=== PATIENT | female | born 1970 | race Caucasian/White ===

== ENCOUNTER 2016-05-15 10:56 | Emergency (ER) | payer OTHER, MEDICAID ==
[~2016-05-15] VITALS: Ht 149.9 cm; Wt 72.6 kg
[2016-05-15 11:19] VITALS: BP 118/82
== END 2016-05-15 13:01 | disposition home or self-care (01) ==
LOC: ED 10:56
DX: S50.01XA Contusion of right elbow, initial encounter (principal); M79.601 Pain in right arm; W18.30XA Fall on same level, unspecified, initial encounter; Y93.89 Activity, other specified; Y99.8 Other external cause status; Y92.89 Other specified places as the place of occurrence of the external cause

== ENCOUNTER 2016-06-17 12:21 | Emergency (ER) | payer OTHER, MEDICAID ==
[~2016-06-17] VITALS: Ht 162.6 cm; Wt 54.4 kg
[2016-06-17 15:56] VITALS: BP 117/83
== END 2016-06-17 15:58 | disposition home or self-care (01) ==
LOC: ED 12:21
DX: S00.93XA Contusion of unspecified part of head, initial encounter (principal); S80.02XA Contusion of left knee, initial encounter; S80.01XA Contusion of right knee, initial encounter; X58.XXXA Exposure to other specified factors, initial encounter; Y93.89 Activity, other specified; Y99.8 Other external cause status; Y92.89 Other specified places as the place of occurrence of the external cause; G89.29 Other chronic pain; Z88.0 Allergy status to penicillin; Z91.030 Bee allergy status
CPT/HCPCS: 87491; 87591

== ENCOUNTER 2016-06-24 12:11 | Inpatient (IN) | payer OTHER, MEDICAID ==
[~2016-06-24] VITALS: Ht 149.9 cm; Wt 79.1 kg
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
--- NOTE | 2016-06-24 14:35 | NUR ---
PT TAKEN TO RADIOLOGY VIA WHEELCHAIR AT THIS TIME IN A STABLE CONDITION AND W/O INCIDENT.
[2016-06-24 14:43] LABS: CALCIUM 8.5 mg/dL (8.5-10.1); CARBON DIOXIDE 19.6 mmol/L (21-32); CHLORIDE SERUM 107 mmol/L (98-107); CREATININE SERUM 0.5 mg/dL (0.6-1.0); GFR1 > 60 mL/min; GLUCOSE SERUM 79 mg/dL (74-106); SODIUM SERUM 143 mmol/L (136-145)
[2016-06-24 14:46] LABS: POTASSIUM SERUM 4.4 mmol/L (3.5-5.1)
[2016-06-24] MEDS ORDERED: BUSPAR5 MG PO (15:37)
[2016-06-24] MEDS ORDERED: PHENOBARBITAL97.2 MG PO (15:37)
[2016-06-24] MEDS ORDERED: ZOLOFT25 MG PO (15:37)
[2016-06-24] MEDS ORDERED: ROBAXIN500 MG PO (15:38)
[2016-06-24] MEDS ORDERED: [UNRECOGNIZED DRUG - CODE] PO (15:38)
[2016-06-24] MEDS ORDERED: ALLEGRA ALLERG180 M1 PO (15:38)
[2016-06-24] MEDS ORDERED: XANAX0.25 MG PO (15:38)
--- NOTE | 2016-06-24 16:11 | NUR ---
PLEASE ENTER FULL NAMES OF STUDENT/RN Documentation completed by (Student Nurse): JONATHAN LUCAS Documentation reviewed by (Registered Nurse): DAVIS SANDY
--- NOTE | 2016-06-24 16:18 | NUR ---
REPORT CALLED TO ROSA ON [facility] FOR ADMISSION OF THIS PT.
[2016-06-24 16:43] LABS: PHOSPHOROUS 3.1 mg/dL (2.5-4.9)
[2016-06-24 16:44] LABS: CHOLESTEROL/HDL RATIO 2.6
[2016-06-24 16:45] LABS: PLATELET COUNT 460 x10^3mcL (130-400); RED CELL DISTRIBUTION WIDTH 14.9 % (11.5-14.5)
[2016-06-24 16:55] LABS: FREE T4 0.71 ng/dL (0.76-1.46); FREE THYROXINE INDEX 1.7 ug/dL (1.4-4.5); T4(THYROXINE) 5.7 ug/dL (4.7-13.3)
[2016-06-24 17:09] LABS: BAND NEUTROPHIL 7 % (0-10); BASOPHIL 0 % (0-2); MONOCYTE 6 % (0-7); SEGMENTED NEUTROPHILS 47 % (37-75)
[2016-06-24 17:10] LABS: PLATELET MORPHOLOGY PLATELETS NORMAL
[2016-06-24 17:23] VITALS: BP 104/60
[2016-06-24 17:23] LABS: ALBUMIN 3.9 g/dL (3.4-5.0); BILIRUBIN DIRECT 0.11 mg/dL (0.0-0.2); BILIRUBIN TOTAL 0.2 mg/dL (0.20-1.00); TOTAL PROTEIN, SERUM 7.8 g/dL (6.4-8.2)
[2016-06-24 17:24] LABS: T3 TOTAL 1.1 ng/mL
--- NOTE | 2016-06-24 17:32 | NUR ---
RECEIVED PT FROM ED VIA MITESH. ORIENTED PT TO ROOM AND SURROUNDINGS. IV NOTED TO RIGHT HAND PATENT AND INTACT. TELE 30 PLACED ON PT READING NSR. INSTRUCTED PT ON THE USE OF CALL LIGHT FOR ASSISTANCE. ENDORSED PT TO PRIMARY NURSE KALIE
--- NOTE | 2016-06-24 18:00 | NUR ---
IN TO SEE PATIENT AT THIS TIME. PATIENT RESTING IN BED. AT THE BEDSIDE. DENIES PAIN AT THIS TIME. CALL LIGHT WITH IN REACH.
[2016-06-24 18:10] VITALS: BP 104/60
--- NOTE | 2016-06-24 19:20 | NUR ---
RECEIVED PT IN BED AWAKE AND TALKING ON THE PHONE. SHE IS ALERT,ORIENTED TO PERSON, PLACE AND TIME. NO SOB NOTED. BOWEL SOUNDS ACTIVE. SHE HAS NO C/O PAIN AT THIS TIME. W/ SPLINT AND ALVIN BANDAGE TO RT LEG. W/ IVF NS AT 120 CC/HR VIA RT HAND. CALL LIGHT W/IN REACH.
[2016-06-24 20:14] LABS: microscopic required? YES; urine erythrocyte TRACE (NEGATIVE)
[2016-06-24 20:26] LABS: AMPHETAMINE QUAL UR NONE DETECTED (NEG <=1000)
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
[2016-06-24 20:36] VITALS: BP 97/60
--- NOTE | 2016-06-24 22:59 | NUR ---
PT REQUESTING FOR MED FOR SLEEP. ATIVAN 1 MG PO GIVEN.
--- NOTE | 2016-06-24 23:12 | NUR ---
MACHO FROM [employer] CALLED TO FF-UP ON PT'S CONDITION. HE ASKED IF PT IS AWAKE AND ALERT AT THIS TIME. REPORTED THAT PT IS AWAKE, ALERT AND ORIENTED TO PERSON ,PLACE AND TIME.
--- NOTE | 2016-06-25 | NUR ---
PT APPEARS TO BE SLEEPING COMFORTABLY. RESP. EVEN AND UNLABORED.
--- NOTE | 2016-06-25 04:25 | NUR ---
PT ASLEEP SOUNDLY BUT EASILY AROUSABLE. RESPONDS TO VERBAL STIMULI THEN GOES BACK TO SLEEP.
[2016-06-25 05:35] VITALS: BP 102/55
--- NOTE | 2016-06-25 06:00 | NUR ---
PT SLEPT THROUGH THE NIGHT. SHE IS AWAKE AT THIS TIME AND REMAINS ORIENTED TO PERSON ,PLACE AND TIME. SHE WAS MEDICATED FRO PAIN X1. NO EPISODE OF SEIZURE. SHE VOIDS FREELY W/O DIFFICULTY. NO BM THIS SHIFT. IVF NS AT 120 CC/HR INFUSING WELL VIA RT HAND.
[2016-06-25 06:16] LABS: PLATELET COUNT 363 x10^3mcL (130-400)
[2016-06-25 06:44] LABS: CALCIUM 7.8 mg/dL (8.5-10.1); CARBON DIOXIDE 23.3 mmol/L (21-32); CHLORIDE SERUM 110 mmol/L (98-107); CREATININE SERUM 0.6 mg/dL (0.6-1.0); GFR1 > 60 mL/min; GLUCOSE SERUM 94 mg/dL (74-106); MAGNESIUM 1.8 mg/dL (1.8-2.4); PHOSPHOROUS 3.3 mg/dL (2.5-4.9); POTASSIUM SERUM 3.8 mmol/L (3.5-5.1); SODIUM SERUM 140 mmol/L (136-145)
[2016-06-25 06:55] LABS: RED CELL DISTRIBUTION WIDTH 15.3 % (11.5-14.5)
--- NOTE | 2016-06-25 07:10 | NUR ---
RECEIVED. Pt. AAOX3, RESPIRATIONS EVEN AND UNLABORED, DENIES PAIN/DISCOMFORT AT THIS TIME. NO DISTRESS NOTED. TELE IN PLACE. IVF RUNNING TO IV AT RIGHT HAND PATENT AND INTACT. SPLINT WITH ALVIN WRAP AT RLE. BED LOW/LOCKCED. SZ PRECAUTIONS IN PLACE. CALL LIGHT IN REACH.
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
--- NOTE | 2016-06-25 08:30 | NUR ---
MADE ROUNDS WITH DR. RICHTER AND MEDICINE TEAM. DISCUSSED PLAN OF CARE AND Pt. VERBALIZED UNDERSTANDING.
[2016-06-25 09:15] LABS: BAND NEUTROPHIL 8 % (0-10); BASOPHIL 0 % (0-2); MONOCYTE 6 % (0-7); SEGMENTED NEUTROPHILS 52 % (37-75)
[2016-06-25 09:18] LABS: burr cell (echinocyte) 1+; rbc morphology (normal/abnorm) ABNORMAL (NORMAL); schistocyte (helmet cell) 1+
--- NOTE | 2016-06-25 09:58 | NUR ---
Pt. C/O RLE PAIN POST PT EVAL ROBAXIN GIVEN PER EMAR, WILL CONTINUE TO MONITOR.
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
--- NOTE | 2016-06-25 11:30 | NUR ---
Pt. VERBALIZED SOME RELIEF POST ROBAXIN. DENIES PAIN AT THIS TIME. Pt. REPORTED ONLY HAVING RLE PAIN DURING ACTIVITY.
--- NOTE | 2016-06-25 12:00 | NUR ---
NEURO CHECKS DONE NO CHANGES NOTED.
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
--- NOTE | 2016-06-25 13:00 | NUR ---
Pt. DENIES ANXIETY AT THIS TIME. AT BEDSIDE.
[2016-06-25 13:31] VITALS: BP 104/68
--- NOTE | 2016-06-25 16:00 | NUR ---
NEURO CHECKS DONE NO CHANGES NOTED.
[2016-06-25 17:09] VITALS: BP 101/62
--- NOTE | 2016-06-25 18:20 | NUR ---
Pt. C/O RLE PAIN 8/10 SCALE ROBAXIN GIVEN PER EMAR. Pt. ALSO C/O ANXIETY ATIVAN GIVEN PER EMAR. AT BEDSIDE. WILL CONTINUE TO MONITOR.
--- NOTE | 2016-06-25 18:33 | NUR ---
Pt. EYES CLOSED APPEARS TO BE SLEEPING. RESPIRATIONS EVEN AND UNLABORED. NO FACIAL GRIMACING/MOANING/SIGNS OF PAIN/DISCOMFORT AT THIS TIME. NO DISTRESS NOTED. TELE IN PLACE. NO FURTHER SEIZURE EPISODES NOTED. IVF RUNNING TO IV AT LEFT HAND PATENT AND INTACT. RLE WITH SPLINT AND ALVIN WRAPPED. BED LOW/LOCKED. CALL LIGHT IN REACH.
--- NOTE | 2016-06-25 19:20 | NUR ---
PATIENT RECEIVED AWAKE, ALERT, AND ORIENTED X 3 (CONFUSED AND FORGETFUL AT TIMES). NO DISTRESS NOTED. PATIENT C/O 10 RLE PAIN, MEDICATED FOR PAIN BY DAY SHIFT RN PRIOR TO CHANGE OF SHIFT. IV SITE LEFT HAND, PATENT AND INTACT. IV FLUID INFUSING PER DOCTOR'S ORDER. BED IN LOWEST POSITION. CALL LIGHT WITHIN REACH. WILL CONTINUE TO MONITOR.
[2016-06-25 20:26] VITALS: BP 137/79
--- NOTE | 2016-06-26 | NUR ---
PATIENT RESTING COMFORTABLY WITH EYES CLOSED. NO DISTRESS NOTED. WILL CONTINUE TO MONITOR.
--- NOTE | 2016-06-26 05:05 | NUR ---
PATIENT RESTED THROUGHOUT THE NIGHT. NO DISTRESS NOTED. MEDICATED FOR RLE PAIN WITH NORCO PO X 1 PER DOCTOR'S PRN ORDER. PAIN MANAGED THROUGHOUT THE NIGHT. SAFETY AND COMFORT MEASURES MAINTAINED. BED IN LOWEST POSITION. CALL LIGHT WITHIN REACH. WILL CONTINUE TO MONITOR AND ENDORSE TO NEXT SHIFT NURSE.
[2016-06-26 05:29] VITALS: BP 94/55
[2016-06-26 06:33] LABS: CALCIUM 8.3 mg/dL (8.5-10.1); CARBON DIOXIDE 23.6 mmol/L (21-32); CHLORIDE SERUM 109 mmol/L (98-107); CREATININE SERUM 0.7 mg/dL (0.6-1.0); GFR1 > 60 mL/min; GLUCOSE SERUM 106 mg/dL (74-106); MAGNESIUM 1.6 mg/dL (1.8-2.4); PHOSPHOROUS 3.8 mg/dL (2.5-4.9); SODIUM SERUM 142 mmol/L (136-145)
[2016-06-26 06:41] LABS: PLATELET COUNT 416 x10^3mcL (130-400); RED CELL DISTRIBUTION WIDTH 15.2 % (11.5-14.5)
--- NOTE | 2016-06-26 07:25 | NUR ---
PT RECEIVED DURING CHANGE OF SHIFT, PT ASLEEP, NO INDICATION OF PAIN, BREATHING EVEN AND UNLABORED, CALL LIGHT WITHIN REACH, WILL ASSESS WHEN AWAKE.
--- NOTE | 2016-06-26 08:59 | NUR ---
AT BEDSIDE ASSISTING WITH ADLS.
--- NOTE | 2016-06-26 09:25 | NUR ---
DR. CHEN AND RESIDENTS MAKING ROUNDS, PLAN OF CARE DISCUSSED.
--- NOTE | 2016-06-26 09:55 | NUR ---
AT BEDSIDE, PT C/O PAIN IN RLE, DENIES SOB, CALL LIGHT WITHIN REACH, MEDICATIONS ADMINISTERED, WILL CONTINUE TO MONITOR.
[2016-06-26 10:01] VITALS: BP 110/64
[2016-06-26 10:05] LABS: BAND NEUTROPHIL 3 % (0-10); BASOPHIL 0 % (0-2); MONOCYTE 5 % (0-7); SEGMENTED NEUTROPHILS 66 % (37-75)
[2016-06-26 10:06] LABS: rbc morphology (normal/abnorm) ABNORMAL (NORMAL)
[2016-06-26 10:07] LABS: acanthocyte (spur cell) 2+
--- NOTE | 2016-06-26 10:13 | NUR ---
PT REQUESTED SANDWHICH AND 2%MILK, BROUGHT TO BEDSIDE, PT STATES SHE IS ALWAYS OUT OF BREATH AND REQUESTING RESPIRATORY THERAPY, LUNGS CTA ON RA, O2 SAT 99%, BREATHING EVEN AND UNLABORED, NO S/S OF RESPIRATORY DISTRESS, CALL LIGHT WITHIN REACH, WILL CONTINUE TO MONITOR.
--- NOTE | 2016-06-26 10:32 | NUR ---
PT A/OX3, SZ PRECAUTION, TELE 30, NSR, DENIES CHEST PAIN, PULSES PRESENT NO EDEMA NOTED, LUNGS CTA ON RA, BREATHING EVEN AND UNLABORED, O2 SAT 99% ON RA, PT STATES ALWAYS FEELING SOB, LBM 06/24/16, DENIES N/V/D, PT ABLE TO VOID, NWB RLE, ALVIN BANDAGE WRAPPED FROM RT KNEE TO RT FOOT CDI, VISIBLE DRESSING UNDER ALVIN BANDAGE ON RT KNEE CDI, C/O PAIN IN RLE, UNABLE TO USE PAIN SCALE, DID NOT REQUEST PAIN MEDICATION, IV TO LT HAND INFUSING NS AT 120ML/HR, IV WNL, PT AND HYPERVERBAL, CALL LIGHT WITHIN REACH, WILL CONTINUE TO MONITOR.
--- NOTE | 2016-06-26 10:58 | NUR ---
DR. MORALEZ AWARE OF PT'S C/O SOB, WILL NOTIFY RT.
--- NOTE | 2016-06-26 11:49 | NUR ---
PT C/O RLE PAIN, REQUESTED MEDICATION, WILL MEDICATE PER EMAR, AT BEDSIDE, WILL CONTINUE TO MONITOR.
--- NOTE | 2016-06-26 12:22 | NUR ---
DR. CAMARGO AT BEDSIDE SPEAKING TO PT AND PT'S .
--- NOTE | 2016-06-26 13:07 | NUR ---
BLOW DOWN OPERATOR AT BEDSIDE ASSISTING WITH ADL'S.
--- NOTE | 2016-06-26 13:15 | NUR ---
PT NOTES TIME: [id number] TE5',TA10',2PA((1)SAFETY) S:CHART REVIEWED AND CLEARED FOR PT BY RN. PATIENT IN SEMIFOWLER POSITION RESTING WITH AT BEDSIDE. PATIENT EXPRESSING HIGH PAIN, BUT DID NOT VERBALIZE PAIN LEVEL 8/10 BASED ON MORSE DOTY SCALE. PATIENT PREMEDICATED. PATIENT AGREEABLE FOR THERAPY, BUT EAGER TO USE BEDPAN AND ASSISTED ON APPLYING. O:BED: MIN/CGA SUPINE<->SIT WITH BED RAIL ASSIST INTO LONG SIT. PATIENT DECLINED EOB TRANSFER OR OOB DESPITE MUCH ENCOURAGEMENT, MOTIVATION, EDUCATION ON BENEFITS OF OOB THERAPY. PATIENT ABLE TO PERFORM BRIDGING TO HAVE BEDPAN IN POSITIONED, SUCCESSFULLY URINATED. TRANSFER/GAIT: N/T UNABLE, DECLINED. TE: L ANKLE DF/PF, HEEL SLIDES, SHOULDER FLEX/SHRUGS. TOLERATED WITH FAIR FOLLOW THRU. PATIENT EDUCATED ON BENEFITS OF OOB THERAPY, BED EXERCISES, TRANSFERS, BED MOBILITY, AND SAFETY WITH FAIR FOLLOW THRU. PATIENT MADE COMFORTABLE IN BED WITH ALL LINES INTACT, TRAY AND CALL LIGHT IN REACH, AT BEDSIDE. P:CONT WITH POC, PROGRESS DISCUSSED WITH PRIMARY PT.
[2016-06-26 13:30] VITALS: BP 110/74
--- NOTE | 2016-06-26 14:04 | NUR ---
PT WATCHING TV, AT BEDSIDE, CALL LIGHT WITHIN REACH, WILL CONTINUE TO MONITOR.
--- NOTE | 2016-06-26 14:15 | NUR ---
X-RAY IN PROGRESS.
--- NOTE | 2016-06-26 15:15 | NUR ---
PT ASLEEP, NO INDICATION OF PAIN, BREATHING EVEN AND UNLABORED, ASLEEP AT BEDSIDE, CALL LIGHT WITHIN REACH, WILL CONTINUE TO MONITOR.
--- NOTE | 2016-06-26 16:25 | NUR ---
PT ASLEEP, NO INDICATION OF PAIN, BREATHING EVEN AND UNLABORED, AT BEDSIDE, CALL LIGHT WITHIN REACH, WILL CONTINUE TO MONITOR.
[2016-06-26 16:43] VITALS: BP 93/49
--- NOTE | 2016-06-26 17:09 | NUR ---
PT ASLEEP BUT AROUSABLE, NO INDICATION OF PAIN, BREATHING EVEN AND UNLABORED, CALL LIGHT WITHIN REACH, AT BEDSIDE, WILL CONTINUE TO MONITOR.
--- NOTE | 2016-06-26 18:03 | NUR ---
DR. FRANCE AT BEDSIDE SPEAKING TO PT AND .
--- NOTE | 2016-06-26 18:21 | NUR ---
PT BLEW NOSE, TRACE AMOUNTS OF BLOOD ON SHEET USED TO BLOW NOSE, NO ACTIVE BLEEDING NOTED IN MOUTH OR NOSE.
--- NOTE | 2016-06-26 19:35 | NUR ---
RECEIVED PT FROM PREVIOUS SHIFT NURSE. PT AOX3. TELE #30, NSR, HR94. DENIES CP/PRESSURE. PULSES GOOD, NO EDEMA NOTED. LUNG SOUNDS CLEAR, ON RA. BOWEL SOUNDS ACTIVE. GENERALIZED WEAKNESS, NON-WEIGHT BEARING ON RLE. R. KNEE ABRASION, CDI. IV IN L. HAND, INTACT AND PATENT. BED IN LOWEST POSITION. CALL LIGHT WITHIN REACH. WILL CONTINUE TO MONITOR.
--- NOTE | 2016-06-26 20:40 | NUR ---
PT VOMITING. OFFEREND MEDICATIONS FOR NAUSEA, PT REFUSED. WILL CONTINUE TO MONITOR.
[2016-06-26 21:45] VITALS: BP 108/63
--- NOTE | 2016-06-27 03:00 | NUR ---
PT RESTING IN BED. RR EVEN AND UNLABORED. NO ACUTE DISTRESS NOTED. NEURO CHECKS PERFORMED Q4H PT RESPONDS WHEN SPOKEN TO AND FOLLOWS COMMANDS, SPEECH IS CLEAR, PERRLA IS PRESENT. PT DENIES NUMBNESS. BED IN LOWEST POSITION CALL LIGHT WITHIN REACH. WILL CONTINUE TO MONITOR.
--- NOTE | 2016-06-27 05:27 | NUR ---
NEURO CHECKS WNL THROUGHOUT SHIFT.
[2016-06-27 06:00] VITALS: BP 103/59
--- NOTE | 2016-06-27 08:14 | NUR ---
PT VOMITING, EMESIS CLEAR. ZOFRAN GIVEN.
--- NOTE | 2016-06-27 08:31 | NUR ---
PT IS A+Ox3, VOMITING CLEAR LIQUID, TELE #30, NSR, PULSES MODERATE AND EQUAL BILATERALLY, NO EDEMA PRESENT, LUNG SOUNDS CLEAR, BOWEL SOUNDS ACTIVE, VOIDING WITHOUT DIFFICULTY, GENERALIZED WEAKNESS, NON WEIGHT BEARING RLE, R KNEE ABRASION, NO IV PRESENT PER THE PT PULLING IT OUT.
--- NOTE | 2016-06-27 08:34 | NUR ---
PT PULLED IV OUT, CATHETER INTACT, GAUZE AND TAPE PLACED ON SITE.
--- NOTE | 2016-06-27 08:35 | NUR ---
ZOFRAN COULD NOT BE GIVEN BECAUSE THE PT PULLED HER IV OUT. WILL REQUEST ZOFRAN PO.
[2016-06-27] MEDS ORDERED: XAN1 PO (09:09)
[2016-06-27] MEDS ORDERED: ZOLOFT50 MG PO (09:10)
[2016-06-27] MEDS ORDERED: ROBAXIN-750750 MG PO (09:12)
[2016-06-27 10:06] VITALS: BP 118/69
--- NOTE | 2016-06-27 12:41 | NUR ---
PT COMPLAINING OF NAUSEA AND REFUSING ALL ORAL MEDICATIONS.
--- NOTE | 2016-06-27 13:28 | NUR ---
IV INSERTED IN THE LEFT FOREARM, BLOOD RETURN PRESENT, FLUSHED, AND TAPEED WITH TEGADERM. WRAPPED IN GAUZE. SITE WNL, GRANT.
[2016-06-27 14:09] VITALS: BP 114/67
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
--- NOTE | 2016-06-27 15:46 | NUR ---
EARLIER, SPOKE WITH DR MORALEZ. MADE AWARE EMESIS THROUGHOUT NIGHT AND DAY SHIFT, NOT EATING OR DRINKING ANYTHING. ALSO, MADE DR MORALEZ AWARE OF CONVERSATION EARLIER WITH PATIENTS FATHER.
[2016-06-27 16:58] VITALS: BP 113/59
--- NOTE | 2016-06-27 17:49 | NUR ---
PT HAD EMESIS THREE TIMES: 0830: CLEAR FLUID, 1230: CLEAR FLUID, 1328: YELLOW LIQUID.
--- NOTE | 2016-06-27 17:52 | NUR ---
PT COMPLAINING OF NAUSEA, ZOFRAN GIVEN.
--- NOTE | 2016-06-27 18:23 | NUR ---
TELE BOX REMOVED, CLEANED AND RETURNED TO CRITICAL CARE PHYSICIAN ASSISTANT.
--- NOTE | 2016-06-27 18:38 | NUR ---
PT TOOK A DRINK OF WATER AND HAD 2 BITES OF A CRACKER. WILL CONTINUE TO ENCOURAGE PT TO HYDRATE AND EAT.
--- NOTE | 2016-06-27 18:38 | NUR ---
PT VOMITED CLEAR YELLOW LIQUID.
--- NOTE | 2016-06-27 18:40 | NUR ---
REPORTED PT CONDITION OF EMESIS AND NAUSEA TO DR. MORALEZ.
--- NOTE | 2016-06-27 19:01 | NUR ---
NEURO CHECKS WNL THROUGHOUT SHIFT.
--- NOTE | 2016-06-27 19:07 | NUR ---
HAD EMESIS THROUGHOUT SHIFT. OTHER THAN TWO BITES OF CRACKERS, DID NOT EAT ANY MEALS. DR MORALEZ IS AWARE.
--- NOTE | 2016-06-27 20:10 | NUR ---
PT RECIEVED AWAKE ALERT AND ORIENTED TO SELF AND PLACE,REG RESP NO SOB,V/S STABLE,KEPT CLEAN AND DRY TO TOUCH,IV INFUSING WELL WITH THE SITE PATENT AND INTACT,BED IN THE LOW POSITION AND LOCKED,CALL LIGHT EASY REACHED AND WILL CONTINUE TO MONITOR.
[2016-06-27 21:37] VITALS: BP 97/56
[2016-06-28 05:37] VITALS: BP 101/56
--- NOTE | 2016-06-28 06:20 | NUR ---
PT HAD A RESTING NIGHT V/S STABLE,KEPT CLEAN AND DRY TO TOUCH,WILL CONTINUE TO MONITOR.
[2016-06-28 07:29] LABS: CALCIUM 8.9 mg/dL (8.5-10.1); CARBON DIOXIDE 21.8 mmol/L (21-32); CHLORIDE SERUM 106 mmol/L (98-107); CREATININE SERUM 0.8 mg/dL (0.6-1.0); GFR1 > 60 mL/min; GLUCOSE SERUM 93 mg/dL (74-106); MAGNESIUM 2.2 mg/dL (1.8-2.4); POTASSIUM SERUM 3.6 mmol/L (3.5-5.1); SODIUM SERUM 140 mmol/L (136-145)
--- NOTE | 2016-06-28 07:40 | NUR ---
RECEIVED THE PATIENT AWAKE AND ORIENTED TO PERSON, PLACE AND BUT SLOW ANSWER. PATIENT DENIED PAIN, SHORTNESS OF BREATH OR NAUSEA/VOMITING AT THIS TIME. IVF NS VIA H/L TO LFA. CALL LIGHT WITHIN REACH. SIDE RAILS UP X3 AND PADDED FOR SEIZURE PRECAUTION. CONTINUE TO MONITOR.
--- NOTE | 2016-06-28 08:30 | NUR ---
DR. FRIAS AND THE TEAM WERE MAKING ROUND TO SEE THE PATIENT. THE CARE PLAN WAS DISCUSSED WITH THE PATIENT AND THE ; BOTH VERBALIZED UNDERSTANDING.
[2016-06-28 10:06] VITALS: BP 126/72
--- NOTE | 2016-06-28 12:44 | NUR ---
PT NOTES TIME [id number] S: CLEARED BY RN FOR P.T. TX. PATIENT IS ASLEEP, BUT AROUSABLE IN A SEMI ROMERO POSITION IN BED. "LES" PRESENT AT BEDSIDE. NO C/O PAIN OR DIZZINESS AT THIS TIME. ADDITIONALLY, SPOKE W/ DR. CAMARGO REGARDING PATIENT'S WB STATUS ON R LE. PER DR. CAMARGO PATIENT IS ABLE TO WBAT OR TTWB NELSON. BY PATIENT. PRIMARY THERAPIST NOTIFIED. O: BED MOBILITY: SUPINE>SIT INDEPENDENT. TRANSFER: SIT<>STAND W/ FWW SBA/CGA. PATIENT IS IMPULSIVE TENDS TO PULL FROM FWW TO STAND. REQUIRES VC FOR PROPER SEQUENCE W/ SAFE SIT<>STAND TRANSFER. GAIT: 575FT W/ FWW MIN/CGA R WBAT/TTWB. DEMO INCREASE ANTERIOR TRUNK LEAN ON THE FWW. TEND TO PLACE FWW FAR IN FRONT DURING GAIT. PATIENT REPORTS NO PAIN ON R KNEE DURING GAIT TRAINING. VC GIVEN TO INCREASE PROXIMITY OF FWW TO SELF DURING GAIT TRAINING. ADDITIONALLY, PATIENT HAS INCREASE GAIT DISTANCE. EDUCATED PATIENT & ON SAFETY FOR FALL PREVENTION & ENERGY CONSERVATION. PATIENT & VERBALIZED UNDERSTANDING. ADDITIONALLY, MOTIVATES PATIENT. STATES, "WE WALK AROUND A LOT." COOPERATIVE & APPRECIATIVE OF CARE. PATIENT IS SAFELY & COMFORTABLY SITTING UP IN A CHAIR BY BEDSIDE W/ CALL BUTTON & TABLE IN REACH. LEFT IN CARE OF . ENDORSED TO HOG WORKER "JEANMARIE" TO ASSIST PATIENT BTB. RN NOTIFIED. P: DISCUSSED W/ PRIMARY PHYSICAL THERAPIST. GT30',TA8',PVE((3) ADDITIONAL STAFF SBA FOR SAFETY, SPOKE W/ DR. CAMARGO REGARDING WB STATUS)
[2016-06-28 15:27] VITALS: BP 126/72
--- NOTE | 2016-06-28 16:00 | NUR ---
DISCHARGE INSTRUCTION WAS EXPLAINED AND HANDED TO THE BOTH THE PATIENT AND HER , LES SANTOS. ALL QUESTIONS WERE ANSWERED, AND BOTH VERBALIZED UNDERSTANDING. H/L WAS REMOVED WITH CATH INTACT. ID BAND REMOVED. THE PHOTOGRAPH OF ABRASION AT RIGHT KNEE TAKEN.
--- NOTE | 2016-06-28 16:10 | NUR ---
THE PATIENT WAS TAKEN TO THE DISCHARGE OFFICE VIA WHEELCHAIR IN STABLE CONDITION. ALL BELONGINGS INCLUDING WALKER-WHICH WAS DELIVERED TO THE BEDSIDE WAS SENT HOME WITH THE PATIENT UPON DISCHARGE.
== END 2016-06-28 16:10 | disposition home health service (06) | DRG 91 ==
LOC: ED 12:11 → DU 15:25 → MU 15:25 → DU 16:50 → MU 06-28 09:06
PROVIDERS: Emergency Medicine; Family Medicine; ADMIT Family Medicine
DX: G92 Toxic encephalopathy (principal); N17.0 Acute kidney failure with tubular necrosis; N39.0 Urinary tract infection, site not specified; T42.3X5A Adverse effect of barbiturates, initial encounter; G40.909 Epilepsy, unspecified, not intractable, without status epilepticus; E83.42 Hypomagnesemia; M25.561 Pain in right knee; F41.1 Generalized anxiety disorder; D64.9 Anemia, unspecified; F43.10 Post-traumatic stress disorder, unspecified; D47.3 Essential (hemorrhagic) thrombocythemia; Z68.35 Body mass index [BMI] 35.0-35.9, adult; Y92.018 Other place in single-family (private) house as the place of occurrence of the external cause; Z91.410 Personal history of adult physical and sexual abuse
CPT/HCPCS: 80307; 83880; 84439; 97110-GP; 97116-GP; 97530-GP; G0480; J1885; J1956; J2405; J3475; J7030; J7042; J7620

== ENCOUNTER 2016-08-28 21:14 | Inpatient (IN) | payer OTHER, MEDICAID ==
[~2016-08-28] VITALS: Ht 149.9 cm; Wt 86.2 kg
[~2016-08-28 21:14] MED LIST: ALLEGRA ALLERG180 M1 PO; BUSPAR5 MG PO; PHENOBARBITAL97.2 MG PO; ROBAXIN-750750 MG PO; ROBAXIN500 MG PO; XAN1 PO; XANAX0.25 MG PO; ZOLOFT25 MG PO; ZOLOFT50 MG PO; [UNRECOGNIZED DRUG - CODE] PO
[2016-08-28 22:01] LABS: ALBUMIN 3.7 g/dL (3.4-5.0); ALKALINE PHOSPHATASE 107 U/L (46-116); ALT/SGPT 21 U/L (14-59); AST/SGOT 14 U/L (15-37); BILIRUBIN TOTAL 0.28 mg/dL (0.20-1.00); CALCIUM 8.5 mg/dL (8.5-10.1); CARBON DIOXIDE 19.9 mmol/L (21-32); CHLORIDE SERUM 110 mmol/L (98-107); CREATININE SERUM 0.7 mg/dL (0.6-1.0); GFR1 > 60 mL/min; GLUCOSE SERUM 90 mg/dL (74-106); SODIUM SERUM 144 mmol/L (136-145); TOTAL PROTEIN, SERUM 7.5 g/dL (6.4-8.2)
[2016-08-28 22:15] LABS: POTASSIUM SERUM 2.9 mmol/L (3.5-5.1)
[2016-08-28 22:17] LABS: PLATELET COUNT 405 x10^3mcL (130-400); RED CELL DISTRIBUTION WIDTH 14.9 % (11.5-14.5)
[2016-08-28 22:32] LABS: ATYPICAL LYMPH 1 %; BAND NEUTROPHIL 4 % (0-10); MONOCYTE 6 % (0-7); SEGMENTED NEUTROPHILS 51 % (37-75)
[2016-08-28 22:33] LABS: PLATELET MORPHOLOGY FEW LARGE PLATELETS; rbc morphology (normal/abnorm) NORMAL (NORMAL)
[2016-08-29 03:24] LABS: T3 TOTAL 1.31 ng/mL
[2016-08-29 03:25] LABS: FREE T4 0.78 ng/dL (0.76-1.46); FREE THYROXINE INDEX 1.7 ug/dL (1.4-4.5); T4(THYROXINE) 5.8 ug/dL (4.7-13.3)
[2016-08-29 03:29] LABS: MAGNESIUM 1.7 mg/dL (1.8-2.4); PHOSPHOROUS 3.1 mg/dL (2.5-4.9)
[2016-08-29 04:20] LABS: CHOLESTEROL/HDL RATIO 2.6
[2016-08-29 15:24] VITALS: BP 97/55
[2016-08-29 18:09] LABS: CALCIUM 8.6 mg/dL (8.5-10.1); CARBON DIOXIDE 22.8 mmol/L (21-32); CHLORIDE SERUM 108 mmol/L (98-107); CREATININE SERUM 0.7 mg/dL (0.6-1.0); GFR1 > 60 mL/min; GLUCOSE SERUM 106 mg/dL (74-106); POTASSIUM SERUM 3.9 mmol/L (3.5-5.1); SODIUM SERUM 139 mmol/L (136-145)
== END 2016-08-29 21:05 | disposition left against medical advice (07) | DRG 917 ==
LOC: ED 21:14 → DU 22:57
PROVIDERS: Emergency Medicine; ADMIT Family Medicine
DX: T42.3X1A Poisoning by barbiturates, accidental (unintentional), initial encounter (principal); G92 Toxic encephalopathy; G80.9 Cerebral palsy, unspecified; G40.909 Epilepsy, unspecified, not intractable, without status epilepticus; G89.29 Other chronic pain; D64.9 Anemia, unspecified; D47.3 Essential (hemorrhagic) thrombocythemia; F43.10 Post-traumatic stress disorder, unspecified; Y92.009 Unspecified place in unspecified non-institutional (private) residence as the place of occurrence of the external cause
CPT/HCPCS: 83880; 84439; G0480; J1630; J2060; J3480

== ENCOUNTER 2016-09-03 19:37 | Emergency (ER) | payer OTHER, MEDICAID ==
[2016-09-03 23:24] VITALS: BP 105/65
== END 2016-09-03 23:24 | disposition home or self-care (01) ==
LOC: ED 19:37
DX: S20.212A Contusion of left front wall of thorax, initial encounter (principal); Z88.0 Allergy status to penicillin; X58.XXXA Exposure to other specified factors, initial encounter; Y93.89 Activity, other specified; Y92.89 Other specified places as the place of occurrence of the external cause; Y99.8 Other external cause status

== ENCOUNTER 2016-09-05 22:40 | Emergency (ER) | payer OTHER, MEDICAID ==
[2016-09-06 01:02] VITALS: BP 98/58
== END 2016-09-06 01:02 | disposition home or self-care (01) ==
LOC: ED 22:40
DX: R07.89 Other chest pain (principal); J45.909 Unspecified asthma, uncomplicated; Z79.899 Other long term (current) drug therapy
CPT/HCPCS: J1885; Q0092

== ENCOUNTER 2016-10-22 20:59 | Emergency (ER) | payer OTHER, MEDICAID ==
[2016-10-22 22:32] LABS: BASOPHIL % 0.5 % (0-2); RED CELL DISTRIBUTION WIDTH 13.7 % (11.5-14.5)
[2016-10-22 22:35] LABS: PLATELET COUNT 408 x10^3mcL (130-400)
[2016-10-22 22:42] LABS: CALCIUM 8.8 mg/dL (8.5-10.1); CARBON DIOXIDE 23.9 mmol/L (21-32); CHLORIDE SERUM 105 mmol/L (98-107); CREATININE SERUM 0.6 mg/dL (0.6-1.0); GFR1 > 60 mL/min; GLUCOSE SERUM 87 mg/dL (74-106); POTASSIUM SERUM 3.3 mmol/L (3.5-5.1); SODIUM SERUM 140 mmol/L (136-145)
[2016-10-22 22:56] LABS: ALBUMIN 3.7 g/dL (3.4-5.0); ALKALINE PHOSPHATASE 135 U/L (46-116); ALT/SGPT 19 U/L (14-59); AMYLASE 54 U/L (25-115); AST/SGOT 16 U/L (15-37); BILIRUBIN TOTAL 0.3 mg/dL (0.20-1.00); LIPASE 91 IU/L (73-393); MAGNESIUM 1.7 mg/dL (1.8-2.4)
[2016-10-23 00:55] VITALS: BP 100/64
== END 2016-10-23 00:45 | disposition home or self-care (01) ==
LOC: ED 20:59
PROVIDERS: Emergency Medicine
DX: R56.9 Unspecified convulsions (principal); J45.909 Unspecified asthma, uncomplicated; Z88.0 Allergy status to penicillin
CPT/HCPCS: 36415

== ENCOUNTER 2016-11-14 11:57 | Emergency (ER) | payer OTHER, MEDICAID ==
[~2016-11-14] VITALS: Ht 149.9 cm; Wt 68.0 kg
[2016-11-14 14:29] VITALS: BP 109/80
== END 2016-11-14 15:46 | disposition home or self-care (01) ==
LOC: ED 11:57
DX: S93.401A Sprain of unspecified ligament of right ankle, initial encounter (principal); M25.551 Pain in right hip; J45.909 Unspecified asthma, uncomplicated; G83.9 Paralytic syndrome, unspecified; Z90.710 Acquired absence of both cervix and uterus; Z88.0 Allergy status to penicillin; Z79.51 Long term (current) use of inhaled steroids; Z79.899 Other long term (current) drug therapy; W06.XXXA Fall from bed, initial encounter; Y93.89 Activity, other specified; Y92.89 Other specified places as the place of occurrence of the external cause; Y99.8 Other external cause status
CPT/HCPCS: J1885; Q0092